=== PATIENT | female | born 1975 | race Native Hawaiian/Other Pacific Islander ===

== ENCOUNTER 2019-08-17 13:01 | Outpatient (CLI) | payer BC | END 2019-08-17 19:46 | disposition home or self-care (01) | LOC: MAMMO 13:01 | DX: Z12.31 Encounter for screening mammogram for malignant neoplasm of breast (principal) ==

== ENCOUNTER 2020-08-19 12:46 | Outpatient (CLI) | payer BC | END 2020-08-19 19:46 | disposition home or self-care (01) | LOC: MAMMO 12:46 | PROVIDERS: ATTEND Obstetrics & Gynecology | DX: Z12.31 Encounter for screening mammogram for malignant neoplasm of breast (principal) ==

== ENCOUNTER 2020-11-06 15:19 | Outpatient (CLI) | payer BC ==
[2020-11-06 15:34] LABS: PLATELET COUNT 325 K/uL (152-353)
[2020-11-06 16:06] LABS: POTASSIUM 3.8 mmol/L (3.6-5.2)
== END 2020-11-06 19:48 | disposition home or self-care (01) ==
LOC: LABW 15:19
PROVIDERS: ATTEND Podiatrist
DX: I73.9 Peripheral vascular disease, unspecified (principal); M19.072 Primary osteoarthritis, left ankle and foot
CPT/HCPCS: 36415; 80053; 85027; 86140

== ENCOUNTER 2020-11-07 13:01 | Outpatient (CLI) | payer BC | END 2020-11-07 20:10 | disposition home or self-care (01) | LOC: LABW 13:01 | PROVIDERS: ATTEND Podiatrist | DX: M19.072 Primary osteoarthritis, left ankle and foot (principal) | CPT/HCPCS: 36415; 85652; 86038 ==

== ENCOUNTER 2020-11-12 08:33 | Outpatient (CLI) | payer BC | END 2020-11-12 19:39 | disposition home or self-care (01) | LOC: CT 08:33 | PROVIDERS: ATTEND Podiatrist | DX: I73.9 Peripheral vascular disease, unspecified (principal); I73.00 Raynaud's syndrome without gangrene; L03.032 Cellulitis of left toe ==

== ENCOUNTER 2020-11-25 08:55 | Outpatient (CLI) | payer BC | END 2020-11-25 22:10 | disposition home or self-care (01) | LOC: CT 08:55 | PROVIDERS: ATTEND Registered Nurse | DX: K76.9 Liver disease, unspecified (principal) | CPT/HCPCS: Q9963 ==

== ENCOUNTER 2021-01-15 08:52 | Outpatient (CLI) | payer BC | END 2021-01-15 19:18 | disposition home or self-care (01) | LOC: MRI 08:52 | PROVIDERS: ATTEND Nurse Practitioner Family | DX: R16.0 Hepatomegaly, not elsewhere classified (principal) | CPT/HCPCS: A9576 ==

== ENCOUNTER 2021-01-20 13:07 | Outpatient (CLI) | payer BC ==
[2021-01-20 13:34] LABS: POTASSIUM 3.7 mmol/L (3.6-5.2)
[2021-01-20 13:37] LABS: PLATELET COUNT 322 K/uL (152-353)
== END 2021-01-20 23:42 | disposition home or self-care (01) ==
LOC: LAB 13:07
PROVIDERS: ATTEND Internal Medicine Gastroenterology
DX: R16.0 Hepatomegaly, not elsewhere classified (principal)
CPT/HCPCS: 36415; 80053; 85027

== ENCOUNTER 2021-09-08 08:51 | Outpatient (CLI) | payer BC | END 2021-09-08 18:52 | disposition home or self-care (01) | LOC: MRI 08:51 | PROVIDERS: ATTEND Nurse Practitioner Family | DX: R16.0 Hepatomegaly, not elsewhere classified (principal); Z12.31 Encounter for screening mammogram for malignant neoplasm of breast | CPT/HCPCS: A9576 ==

== ENCOUNTER 2022-09-08 12:59 | Outpatient (CLI) | payer BC | END 2022-09-08 22:20 | disposition home or self-care (01) | LOC: MAMMO 12:59 | PROVIDERS: ATTEND Obstetrics & Gynecology | DX: Z12.31 Encounter for screening mammogram for malignant neoplasm of breast (principal) ==